=== PATIENT | male | born 1965 | race Caucasian/White ===

== ENCOUNTER 2016-06-22 20:44 | Emergency (ER) | payer MEDICAID ==
[~2016-06-22] VITALS: Ht 167.6 cm; Wt 83.5 kg
[2016-06-22 21:03] VITALS: Ht 167.6 cm; Wt 83.5 kg
[2016-06-22] MEDS ORDERED: POLY17PO6 PO (23:06)
[2016-06-22] MEDS ORDERED: DOCU-144 PO (23:06)
[2016-06-22] MEDS ORDERED: HYDR25SU23 PR (23:06)
--- NOTE | 2016-06-22 23:17 | ERD ---
ER Documentation Chief Complaint Date/Time DATE: 06/22/16 TIME: 23:15 Chief Complaint bump in rectal area HPI 51 year male presents here in emergency department for complaints of bump in the rectal area that he noticed today. Patient denies any pain. Patient states that he is constipated at times. Patient denies any abdominal pain. Patient denies any fever or chills. Patient denies any rectal bleeding. ROS All systems reviewed and are negative except as per history of present illness. Medications Home Meds Active Scripts Polyethylene Glycol* (Miralax*) 17 Gm Powd.pack, 17 GM PO DAILY, #7 Prov:KYLE ARTHUR BEEF CATTLE GRAZIER 06/22/16 Docusate Sodium* (Colace*) 100 Mg Capsule, 100 MG PO TID, #30 CAP Prov:KYLE ARTHUR BEEF CATTLE GRAZIER 06/22/16 Hydrocortisone Acetate (Anusol-Hc) 25 Mg Supp.rect, 1 SUPP RI BID Y for HEMORROID PAIN/ITCHING, #12 SUPP.RECT Prov:KYLE ARTHUR NP 06/22/16 Allergies Allergies: Coded Allergies: No Known Allergy (Unverified , 06/22/16) PMhx/Soc Medical and Surgical Hx: pt denies Medical Hx, pt denies Surgical Hx Hx Alcohol Use: No Hx Substance Use: No Hx Tobacco Use: No Smoking Status: Never smoker FmHx Family History: No coronary disease, No diabetes, No other Physical Exam Vitals Vital Signs Date Time Temp Pulse Resp B/P Pulse Ox O2 Delivery O2 Flow Rate FiO2 06/22/16 21:03 98.3 95 20 113/64 100 Physical Exam GENERAL: The patient is well developed and appropriate for usual state of health, in no apparent distress. CHEST: Clear to auscultation bilaterally. There are no rales, wheezes or rhonchi. HEART: Regular rate and rhythm. No murmurs, clicks, rubs or gallops. No S3 or S4. ABDOMEN: Soft, nontender and nondistended. Good bowel sounds. No rebound or guarding. No gross peritonitis. No gross organomegaly or masses. No Britton sign or McBurney point tenderness. BACK: No midline or flank tenderness. EXTREMITIES: Equal pulses bilaterally. There is no peripheral clubbing, cyanosis or edema. No focal swelling or erythema. Full range of motion. Grossly neurovascularly intact. NEURO: Alert and oriented. Cranial nerves 2-12 intact. Motor strength in all 4 extremities with 5/5 strength. Sensation grossly intact. Normal speech and gait. SKIN: There is no apparent rash or petechia. The skin is warm and dry. HEMATOLOGIC AND LYMPHATIC: There is no evidence of excessive bruising or lymphedema. No gross cervical, axillary, or inguinal lymphadenopathy. RECTAL: Noted external hemorrhoid, nontender, nonthrombosed. No erythema. No abscess noted. No perirectal, pilonidal cyst abscess noted. Good rectal tone noted. Procedures/MDM Medical decision making: Patient symptoms is likely consistent with a hemorrhoid , patient is an external hemorrhoid noted during physical examination, nontender , nonthrombosed. No symptoms of any acute urine infection, no symptoms of perirectal, pilonidal cyst abscess. She was given for Anusol suppositories, Colace and MiraLAX, is advised to follow-up with primary care doctor in 2-3 days for reevaluation and symptoms, see colorectal surgery if worsening. Patient was advised to return to emergency department for any worsening symptoms. Departure Diagnosis: Primary Impression: Acute hemorrhoid Condition: Stable Patient Instructions: Hemorrhoids Ref[facility] Usted se cárdenas hecho un examen mdico de control que le indica que no est en paige condicin que requiera tratamiento urgente en el Departamento de Emergencia. Un estudio ms profundo y el tratamiento de galarza condicin pueden esperar sin ningn riesgo hasta que usted sea atendida/o en el consultorio de galarza mdico o paige cl regino. Es responsabilidad suya arreglar paige tu para el seguimiento del qian. MANEJO DE CONDICIONES NO URGENTES EN EL FUTURO 1) Si usted tiene un mdico de atencin primaria: Usted debera llamar a galarza mdico de atencin primaria antes de venir al departamento de emergencia. Despus de las horas de consultorio, galarza doctor o galarza asociado/a est disponible por telfono. El mdico o enfermero de janna en el servicio telefnico puede asesorarle por didi medio para atender el problema, o qian contrario se puede programar paige tu. 2) Si usted no tiene un mdico de atencin primaria: Llame al mdico o clnica de referencia que aparece abajo jose angel las horas de consultorio para hacer paige tu para que le vean. CLINICAS: [facility] [phone] [facility] [phone] [facility] [phone] [place] [address] [phone] [facility] [phone] [facility] [phone] [address] [facility]. [facility] () Usted se cárdenas hecho un examen mdico de control que le indica que no est en paige condicin que requiera tratamiento urgente en el Departamento de Emergencia. Un estudio ms profundo y el tratamiento de galarza condicin pueden esperar sin ningn riesgo hasta que usted sea atendida/o en el consultorio de galarza mdico o paige cl regino. Es responsabilidad suya arreglar paige tu para el seguimiento del qian. MANEJO DE CONDICIONES NO URGENTES EN EL FUTURO 1) Si usted tiene un mdico de atencin primaria: Usted debera llamar a galarza mdico de atencin primaria antes de venir al departamento de emergencia. Despus de las horas de consultorio, galarza doctor o galarza asociado/a est disponible por telfono. El mdico o enfermero de janna en el servicio telefnico puede asesorarle por didi medio para atender el problema, o qian contrario se puede programar paige tu. 2) Si usted no tiene un mdico de atencin primaria: Llame al mdico o condado institucions de referencia que aparece abajo jose angel las horas de consultorio para hacer paige tu para que le vean. SI USTED NO PUEDE PAGAR PARA RAKAN UN MEDICO puede ir a: [facility] [address] [place] [address] [facility] [address] [place], [place] [id number] [place] [address] [address] [place] [address] [facility] [address] [place], [place] [id number] CUISIA,KYLE Venegas NP Jun 22, 2016 23:17
== END 2016-06-22 23:11 | disposition home or self-care (01) ==
LOC: FTE 20:44
DX: K64.4 Residual hemorrhoidal skin tags (principal)
CPT/HCPCS: 99283